=== PATIENT | female | born 1990 | race Caucasian/White ===

== ENCOUNTER 2021-01-08 03:24 | Inpatient (IN) | payer MEDICAID ==
[~2021-01-08] VITALS: Ht 165.1 cm; Wt 99.8 kg
--- NOTE | 2021-01-08 03:36 | NUR ---
PT BIBRA C/O GENERALIZED ABD PAIN. PT AAOX4 BREATHING EVENLY AND UNLABORED. PER PT, SHE HAS HX OF UTERINE FIBROIDS AND WAS SEEN AT TWO OTHER HOSPITALS TODAY AND WAS TOLD THEY "COULDNT DO ANYTHING FOR HER". PT ALSO ENDORES PAINFUL URINATION AND BM. MD AT BEDSIDE. PT ATTACHED TO MONITOR AND POX. LEFT HAND 20G INITIATED AND BLOOD SENT TO LAB. PT GIVEN BLANKET AND CALL LIGHT WITHIN REACH
[2021-01-08 03:55] LABS: BILIRUBIN,URINE NEGATIVE (NEGATIVE); COLOR,URINE YELLOW (YELLOW); LEUKOCYTE ESTERASE ,URINE SMALL (NEGATIVE); NITRITE, URINE NEGATIVE (NEGATIVE); PROTEIN,URINE TRACE mg/dl (NEGATIVE); UGLUCOSE NEGATIVE (NEGATIVE)
[2021-01-08] MEDS ORDERED: ONDANSETRON HCL/PF 4 MG/2 ML VIAL ONE (03:58)
[2021-01-08] MEDS ORDERED: MORPHINE SULFATE INJ 4 MG/ML DISP.SYRIN ONE ×2 (03:58→08:50)
[2021-01-08] MEDS ORDERED: IV NS 0.9% 1,000 ML BAG IV ONE (04:00)
[2021-01-08] MEDS ORDERED: MORPHINE SULFATE INJ 2 MG/ML DISP.SYRIN IV ONE ×2 (04:00→08:30)
[2021-01-08] MEDS ORDERED: ONDANSETRON HCL/PF 4 MG/2 ML VIAL IVP ONE (04:00)
[2021-01-08 04:09] LABS: BASOPHILS # (AUTO) 0.1 K/uL (0.0-0.2); BASOPHILS % (AUTO) 0.3 % (0.0-2.0); EOSINOPHILS % (AUTO) 0.1 % (0.0-6.0); HEMATOCRIT 40 % (33-45); HEMOGLOBIN 13.4 g/dL (11.5-14.8); LYMPHOCYTES # (AUTO) 1.1 K/uL (0.8-4.8); LYMPHOCYTES % (AUTO) 3.8 % (20.0-44.0); MEAN CORPUSCULAR HGB CONC 34 g/dl (31.0-36.0); MEAN CORPUSCULAR VOLUME 82 fL (82-100); MONOCYTES % (AUTO) 3.6 % (2.0-12.0); NEUTROPHILS # (AUTO) 27.1 K/uL (1.8-8.9); NEUTROPHILS % (AUTO) 92.2 % (43.0-81.0); PLATELET COUNT (AUTO) 224 K/uL (150-450); RED BLOOD CELL COUNT(AUTO) 4.88 MIL/uL (4.0-5.2); WHITE BLOOD COUNT (AUTO) 29.4 K/uL (4.3-11.0)
[2021-01-08 04:16] LABS: BACTERIA,URINE Moderate /HPF (None Seen); SQUAMOUS EPITHELIAL CELL,UR Many /HPF (None Seen)
--- NOTE | 2021-01-08 04:23 | NUR ---
TAKEN TO RADIOLOGY
[2021-01-08 04:32] LABS: ALBUMIN 3.3 g/dL (3.4-5.0); BILIRUBIN,DIRECT 0.9 mg/dL (0.0-0.2); CALCIUM, SERUM 8.6 mg/dL (8.5-10.1); POTASSIUM 3.3 mmol/L (3.5-5.1)
[2021-01-08] MEDS ORDERED: PIPERACILLIN /TAZOBACTAM 3.375 G VIAL IV ONE (05:15)
--- NOTE | 2021-01-08 05:25 | NUR ---
MD VERBAL ORDER 0.5MG DILAUDID IVP
[2021-01-08] MEDS ORDERED: HYDROMORPHONE 1 MG/1 ML DISP.SYRIN ONE (05:26)
[2021-01-08] MEDS ORDERED: PIPERACILLIN /TAZOBACTAM 3.375 G in IV D5W 50 ML IV ONE (05:30)
[2021-01-08] MEDS ORDERED: HYDROMORPHONE 1 MG/1 ML DISP.SYRIN IV ONE (05:30)
--- NOTE | 2021-01-08 05:44 | NUR ---
RE PAGED PANEL
--- NOTE | 2021-01-08 05:48 | NUR ---
PT AMBULATED TO RESTROOM, NEEDS MET
[2021-01-08] MEDS ORDERED: ACETAMINOPHEN 325 MG TABLET PO PRN (07:30)
[2021-01-08] MEDS ORDERED: MAGNESIUM HYDROXIDE 30 ML UDC PO PRN (07:30)
[2021-01-08] MEDS ORDERED: ZOLPIDEM TARTRATE 5 MG TABLET PO PRN (07:30)
[2021-01-08] MEDS ORDERED: Z GUARD REMEDY 2 OZ OINT TP PRN (07:30)
[2021-01-08] MEDS ORDERED: MAG HYDROX/AL HYDROX/SIMETH 30 ML UDC PO PRN (07:30)
--- NOTE | 2021-01-08 07:42 | NUR ---
GAVE REPORT TO KAROLINA WONG FOR JASKARAN
--- NOTE | 2021-01-08 08:09 | NUR ---
Room 311-2
[2021-01-08 08:15] LABS: MAGNESIUM 1.5 mg/dL (1.8-2.4); PHOSPHORUS 3.5 mg/dL (2.5-4.9)
[2021-01-08] MEDS ORDERED: CEFTRIAXONE 1 G in IV D5W 50 ML IV SCH (09:00)
[2021-01-08] MEDS: IV NS 0.9% 1,000 ML IV SCH ×2 (09:16→17:30)
[2021-01-08] MEDS: methylPREDNISolone SOD SUCC 40 MG/ML VIAL IV SCH (09:44)
[2021-01-08] MEDS: Magnesium 1GM/D5W 100ML PREMIX 100 ML IV SCH ×2 (09:45→13:06)
[2021-01-08] MEDS: MORPHINE SULFATE INJ 2 MG/ML DISP.SYRIN IV PRN ×4 (09:47→22:06)
[2021-01-08 10:30] VITALS: BP 127/86
[2021-01-08] MEDS ORDERED: MORPHINE SULFATE INJ 2 MG/ML DISP.SYRIN IV PRN (10:30)
--- NOTE | 2021-01-08 10:50 | NUR ---
m/s receiving lead: admission received report from elaine (rn), pt to be admitted. pt is awake, a/ox4. pt remains npo, pt for small bowel series today, pt verbalized understanding. pt still has discomfort to right lower quadrant. oriented to room and surroundings. instructed to call for assistance. will continue to monitor.
[2021-01-08] MEDS: ONDANSETRON HCL/PF 4 MG/2 ML VIAL IVP PRN ×2 (11:01→16:36)
[2021-01-08] MEDS ORDERED: DIATR MEGLU/DIATRIZOATE SODIUM 120 ML BOTTLE (GASTROGRAPHIN) ONE (11:03)
--- NOTE | 2021-01-08 11:20 | NUR ---
m/s hha: notes picked up by radiopharmacist for small bowel series procedure via w/c at this time.
--- NOTE | 2021-01-08 11:51 | NUR ---
Patient unable to hold down oral contrast. 120cc of Gastrografin was expelled. Radiologist and RN notified. Patient would like to try again later today. Please call Radiology at [phone] when patient is ready.
--- NOTE | 2021-01-08 12:00 | NUR ---
m/s purchasing expeditor: notes pt came back from rad dept and i was informed that pt did not tolerate the oral contrast and pt doesn't want to continue for now and wants to have it done later. madi (acnp) made aware. will continue to monitor. call light within reach.
--- NOTE | 2021-01-08 12:30 | NUR ---
m/s gas leak inspector: md visit seen and examined by madi (acnp) at this time and updated plan of care. pt remains npo. no distress noted. will continue to monitor.
[2021-01-08] MEDS ORDERED: METOCLOPRAMIDE HCL 10 MG/2 ML VIAL IV SCH (13:30)
[2021-01-08] MEDS ORDERED: METOCLOPRAMIDE HCL 10 MG/2 ML VIAL IV PRN (14:00)
--- NOTE | 2021-01-08 14:03 | NUR ---
m/s full time: notes c/o 10/10 abdominal pain, medicated with morphine 2mg ivp by rn. small bowel series scheduled at 1600, pt aware and verbalized understanding. pt remains npo. will continue to monitor.
--- NOTE | 2021-01-08 14:33 | NUR ---
m/s mortar carrier: notes resting quietly in bed with eyes close. no s/s of resp. distress noted. pt remains npo. will continue to monitor. call light within reach.
[2021-01-08] MEDS: POTASSIUM CL. PREMIX PERIPHER. 50 ML IV SCH ×2 (14:46→16:11)
[2021-01-08 16:00] VITALS: BP 123/84
[2021-01-08] MEDS ORDERED: CIPROFLOXACIN IV RTU 200 MG in PREMIX 1 EA IV SCH (16:00)
[2021-01-08] MEDS: METRONIDAZOLE 500MG/ NS 100ML 500 MG in PREMIX 1 EA IV SCH (16:36)
--- NOTE | 2021-01-08 16:36 | NUR ---
m/s birth certificate clerk: notes reglan 10mg and zofran 4mg ivp given by rn prior to small bowel series. radiophone operator at bedside to greens picker the pt via w/c.
--- NOTE | 2021-01-08 18:00 | NUR ---
m/s real estate instructor: notes pt back from small bowel series, but incomplete per cheese grader. pt scheduled back tomorrow morning. pt aware. instructed to call for assistance. will continue to monitor.
[2021-01-08] MEDS: CIPROFLOXACIN IV RTU 400 MG in PREMIX 1 EA IV SCH (18:10)
--- NOTE | 2021-01-08 19:19 | NUR ---
m/s development advisor: notes report given to bar (rn) for continuity of care.
--- NOTE | 2021-01-08 19:30 | NUR ---
RN OPENING NOTE RECEIVED PATIENT IN BED. A/OX4. ANO S/S OF APPARENT DISTRESS ON ROOM AIR. NO C/O PAIN AT THIS TIME-- JUST RECEIVED MEDICATION. IV POTASSIUM WAS RUNNING AT THIS TIME AT 30CC/HR. PATIENT ABLE TO MAKE NEEDS KNOWN. AMBULATORY WITH STEADY GAITS. SAFETY IN PLACE. WILL CONT. TO MONITOR PATIENT.
[2021-01-08 20:00] VITALS: BP 113/71
[2021-01-09] MEDS: METRONIDAZOLE 500MG/ NS 100ML 500 MG in PREMIX 1 EA IV SCH ×4 (00:07→23:50)
[2021-01-09] MEDS: MORPHINE SULFATE INJ 2 MG/ML DISP.SYRIN IV PRN ×4 (02:11→20:28)
[2021-01-09] MEDS: IV NS 0.9% 1,000 ML IV SCH ×3 (03:54→23:30)
[2021-01-09] MEDS: CIPROFLOXACIN IV RTU 400 MG in PREMIX 1 EA IV SCH ×2 (05:03→16:16)
--- NOTE | 2021-01-09 07:30 | NUR ---
MS RN OPENING NOTE RECEIVED PATIENT ON BED AND A/OX4. ON ROOM AIR TOLERATING WELL. NO SOB NOTED. NOT IN DISTRESS. WITH NO COMPLAINTS OF PAIN OR DISCOMFORT AT THIS TIME. WITH IV ACCESS AT LEFT HAND G20 WITH NS AT 100ML/HR INFUSING WELL. SAFETY MEASURES ON PLACE. CALL LIGHT WITHIN REACH. BED ON LOWEST AND LOCKED POSITION, SIDE RAILS UP X2. WILL CONTINUE TO MONITOR.
[2021-01-09 07:42] LABS: EOSINOPHILS % (AUTO) 0.1 % (0.0-6.0); HEMATOCRIT 39 % (33-45); HEMOGLOBIN 12.8 g/dL (11.5-14.8); LYMPHOCYTES # (AUTO) 1.2 K/uL (0.8-4.8); LYMPHOCYTES % (AUTO) 5.1 % (20.0-44.0); MEAN CORPUSCULAR HGB CONC 33 g/dl (31.0-36.0); MEAN CORPUSCULAR VOLUME 84 fL (82-100); MONOCYTES % (AUTO) 4.5 % (2.0-12.0); NEUTROPHILS # (AUTO) 20.8 K/uL (1.8-8.9); NEUTROPHILS % (AUTO) 90.3 % (43.0-81.0); PLATELET COUNT (AUTO) 253 K/uL (150-450); RED BLOOD CELL COUNT(AUTO) 4.62 MIL/uL (4.0-5.2); WHITE BLOOD COUNT (AUTO) 23.1 K/uL (4.3-11.0)
--- NOTE | 2021-01-09 07:47 | NUR ---
report given to Delfina for cont. of care.
[2021-01-09 08:00] VITALS: BP 140/85
[2021-01-09 08:03] LABS: CALCIUM, SERUM 8.8 mg/dL (8.5-10.1); MAGNESIUM 2.4 mg/dL (1.8-2.4); POTASSIUM 3.3 mmol/L (3.5-5.1)
[2021-01-09] MEDS: methylPREDNISolone SOD SUCC 40 MG/ML VIAL IV SCH (08:29)
[2021-01-09] MEDS: POTASSIUM CL. PREMIX PERIPHER. 50 ML IV SCH ×2 (10:43→12:18)
--- NOTE | 2021-01-09 15:00 | NUR ---
radiology called regarding incomplete small bowel follow xray, per radiology they are busy with er and will try to take pt down later.
[2021-01-09] MEDS ORDERED: Sodium Phosphate 15 MMOL in IV NS 0.9% 245 ML IV SCH (15:30)
[2021-01-09 16:00] VITALS: BP 125/78
[2021-01-09] MEDS ORDERED: LORAZEPAM INJ 2 MG/ML VIAL IV PRN (18:30)
--- NOTE | 2021-01-09 18:39 | NUR ---
per radiology small bowel x-ray will be done soon. Wiley BURCH informed.
[2021-01-09] MEDS: ONDANSETRON HCL/PF 4 MG/2 ML VIAL IVP PRN ×2 (18:47→23:45)
--- NOTE | 2021-01-09 18:57 | NUR ---
MS RN CLOSING NOTE PATIENT ON BED AND A/OX4. ON ROOM AIR TOLERATING WELL. NO SOB NOTED. NOT IN DISTRESS. WITH NO COMPLAINTS OF PAIN OR DISCOMFORT AT THIS TIME. WITH IV ACCESS AT LEFT UPPER ARM MIDLINE G18 WITH NS AT 100ML/HR INFUSING WELL. SAFETY MEASURES ON PLACE. CALL LIGHT WITHIN REACH. BED ON LOWEST AND LOCKED POSITION, SIDE RAILS UP X2. WILL ENDORSE TO NEXT SHIFT FOR JASKARAN.
[2021-01-09] MEDS ORDERED: DIATR MEGLU/DIATRIZOATE SODIUM 120 ML BOTTLE (GASTROGRAPHIN) ONE (19:01)
--- NOTE | 2021-01-09 19:05 | NUR ---
MS RM NOTE PATIENT WAS PICKED UP BY RADIOLOGY PERSONNEL FOR SMALL BOWEL FOLLOW THROUGH. GIVEN ZOFRAN FOR NAUSEA AND VOMITING.
--- NOTE | 2021-01-09 19:33 | NUR ---
MS RN NOTE PATIENT WAS TAKEN DOWN BY RADIOLOGIST AT 1906 WHILE WE WERE DOING JASKARAN REPORT.
--- NOTE | 2021-01-09 19:57 | NUR ---
3RD ATTEMPT PERFORMING SMALL BOWEL SERIES. PERFORMED AGENCY LEGAL COUNSEL IMAGES, RESIDUAL CONTRAST SEEN FROM YESTERDAY. SPOKE TO RADIOLOGIST SONNY, STATES STUDY IS COMPLETE, CONTRAST IS SEEN IN LARGE INTESTINE.
[2021-01-09 20:00] VITALS: BP 140/93
--- NOTE | 2021-01-09 21:10 | NUR ---
MS RN NOTES MESSAGED DOCTOR LISA AT THIS TIME REGARDING FINAL REPORT OF PATIENT BOWEL SERIES. DOCTOR ORDERED DIET TO BE CLEAR LIQUIDS FOR NOW. WILL FOLLOW THROUGH ORDER.
--- NOTE | 2021-01-09 23:55 | NUR ---
ms rn note patient requesting sleeping medication. given pooja briton.
--- NOTE | 2021-01-09 23:58 | NUR ---
ms rn note non-admin NS. 1 bag still unfinished.
--- NOTE | 2021-01-10 01:39 | NUR ---
MS RN NOTE DROPPED ATIVAN ATIVAN ON THE FLOOR HENCE HAD TO PULL OUT A NEW ONE. CHARGE NURSE AWARE AND WITNESSED WASTE AND PULLING OUT A NEW ONE WITH ME.
--- NOTE | 2021-01-10 01:39 | NUR ---
MS RN NOTE PATIENT C/O NAUSEA AGAIN AND NOT BEING BE ABLE TO SLEEP EVEN WITH AMBIEN. PER PATIENT JUST A LITTLE RELIEF FROM ZOFRAN AND AMBIEN. HENCE I TRIED GIVING 1MG OF ATIVAN. WILL CONT. TO MONITOR PATIENT. Addendum: 01/10/21 at 0521 by KIEL BACON RN MS RN NOTE PATIENT C/O NAUSEA AGAIN AND NOT BEING BE ABLE TO SLEEP EVEN WITH AMBIEN. PER PATIENT JUST A LITTLE RELIEF FROM ZOFRAN AND AMBIEN. HENCE I TRIED GIVING 0.5 MG* OF ATIVAN. WILL CONT. TO MONITOR PATIENT.
[2021-01-10] MEDS: MORPHINE SULFATE INJ 2 MG/ML DISP.SYRIN IV PRN ×2 (01:49→06:42)
[2021-01-10] MEDS: CIPROFLOXACIN IV RTU 400 MG in PREMIX 1 EA IV SCH (05:06)
--- NOTE | 2021-01-10 06:00 | NUR ---
MS RN NOTE PATIENT REFUSING AM LABS NOW. TALKED TO THE PHLEBOTOMISTS, PER PHLEB SHE WAS JUST ABLE TO DRAW 1 VIAL OF BLOOD FOR BMP AFTER THAT ASKED ME TO DRAW FROM MIDLINE, TRIED DRAWING FROM MIDLINE BUT I WAS UNABLE TO DRAW BLOOD BACK. NOW PATIENT WANTS TO BE LEFT ALONE UNTIL SHE TALKED TO THE DOCTOR.
--- NOTE | 2021-01-10 06:47 | NUR ---
MS RN CLOSING PATIENT IN BED, UNHAPPY. NO S/S OF APPARENT DISTRESS ON ROOM AIR. PAIN MANAGED WITH MEDICATIONS. REFUSES TO BE HOOKED ON IV FOR NOW. ALL SCHED MEDS ADMINISTERED. ALL NEEDS ATTENDED. SAFETY KEPT IN PLACE THE WHOLE SHIFT. WILL ENDORSE CARE TO MORNING SHIFT RN.
--- NOTE | 2021-01-10 07:16 | NUR ---
MS RN OPENING NOTE RECEIVED PATIENT ON BED AND A/OX4. ON ROOM AIR TOLERATING WELL WITH NO SOB OR DISTRESS NOTED. COMPLAINED OF SOME DISCOMFORT AT THIS TIME BUT HAD RECEIVED MORPHINE AROUND 0645 WITH SOME RELIEF. WITH IV ACCESS AT LEFT UPPER ARM MIDLINE G20 WITH NS RUNNING AT 100ML/HR INFUSING WELL. SAFETY MEASURES ON PLACE. CALL LIGHT WITHIN REACH. BED ON LOWEST AND LOCKED POSITION, SIDE RAILS UP X2. WILL CONTINUE TO MONITOR.
[2021-01-10 07:40] LABS: MAGNESIUM 2.5 mg/dL (1.8-2.4); PHOSPHORUS 2.7 mg/dL (2.5-4.9); POTASSIUM 3.6 mmol/L (3.5-5.1)
[2021-01-10] MEDS: METRONIDAZOLE 500MG/ NS 100ML 500 MG in PREMIX 1 EA IV SCH (08:17)
[2021-01-10] MEDS: methylPREDNISolone SOD SUCC 40 MG/ML VIAL IV SCH (08:55)
[2021-01-10] MEDS ORDERED: DICYCLOMINE HCL 10 MG CAPSULE PO PRN (09:30)
--- NOTE | 2021-01-10 09:30 | NUR ---
MS RN NOTE PATIETN SEEN BY DR. WILHELM AND PATIENT AGREED TO HAVE BLOOD DRAWN DONE AFTER EXPLANATION. WILL CONTINUE MONITORIGN PATIENT.
[2021-01-10 11:02] VITALS: BP 101/56
--- NOTE | 2021-01-10 13:00 | NUR ---
MS RN NOTE AFTER SEVERAL ATTEMPTS FROM THE PHLEB, THEY SAID THEY WILL TRY AGAIN LATER. PATIENT VERBALIZING FRUSTRATION AND INTENT TO GO HOME AGAINST MEDICAL ADVICE.
[2021-01-10] MEDS ORDERED: DICY10CA37 PO (13:11)
[2021-01-10] MEDS ORDERED: METR-147 PO (13:11)
[2021-01-10] MEDS ORDERED: CIPR-262 PO (13:11)
--- NOTE | 2021-01-10 13:30 | NUR ---
MS RN NOTE VISUAL JOURNALIST SAID SHE CANNOT WAIT TO HAVE ANOTHER VISUAL JOURNALIST DRAW BLOOD FROM HER AND FAIL. SHE OPTED TO GO HOME AGAINST MEDICAL MEDICAL ADVICE. SGINED DOCUMENT AND ATTACHED TO CHART. DR. WILHELM NOTIFIED. IV ACCESS REMOVED AND COVERED WITH DRY DRESSING. TOLERATED WELL. AND EXPLAINED REPERCUSSIONS OF ACTIONS. VERBALIZED UNDERSTANDING. NOT IN DISTRESS. ACCOMPANIED TO LOBBY ON A WHEELCHAIR PICKED UP BY FRIEND. ENDORSED ACCORDINGLY.
[2021-01-10] MEDS ORDERED: METRONIDAZOLE 500 MG TABLET PO SCH (16:00)
== END 2021-01-10 13:20 | disposition left against medical advice (07) | DRG 248 ==
LOC: ER 03:26 → MED 08:13
PROVIDERS: ADMIT Registered Nurse; ATTEND Nurse Practitioner Family
PROC: 05HF33Z Insertion of Infusion Device into Left Cephalic Vein, Percutaneous Approach (ICD-10-PCS; principal; 2021-01-09)
DX: A04.9 Bacterial intestinal infection, unspecified (principal); D25.9 Leiomyoma of uterus, unspecified; N39.0 Urinary tract infection, site not specified; Z20.822 Contact with and (suspected) exposure to COVID-19; Z90.49 Acquired absence of other specified parts of digestive tract; E66.01 Morbid (severe) obesity due to excess calories; Z68.37 Body mass index [BMI] 37.0-37.9, adult; N83.00 Follicular cyst of ovary, unspecified side; F43.9 Reaction to severe stress, unspecified
CPT/HCPCS: 36410; 36415; 71045-TC; 74250-TC; 80048-TC; 80061-TC; 80076-TC; 81001; 83690-TC; 83735-TC; 84100-TC; 84703-TC; 85025-TC; 87081-TC; 87086-TC; A4216; A6253; A9563; C9803; G0378; J0696; J0744; J1170; J2060; J2270; J2405; J2543; J2765; J2920; J3475; J3480; J7030; J7050; J7060; Q9963